=== PATIENT | male | born 1995 | race Two or more races ===

== ENCOUNTER 2019-12-27 00:29 | Emergency (ER) | payer SELFPAY ==
[~2019-12-27] VITALS: Ht 180.3 cm; Wt 84.1 kg
[2019-12-27] MEDS ORDERED: KETOROLAC TROMETHAMINE 30 MG/ML VIAL IM ONE (01:00)
[2019-12-27 01:40] VITALS: BP 135/78
== END 2019-12-27 02:23 | disposition left against medical advice (07) ==
LOC: EMS 00:29
DX: J02.9 Acute pharyngitis, unspecified (principal)
CPT/HCPCS: 96372; 99283; J1885